=== PATIENT | male | born 1980 | race Caucasian/White ===

== ENCOUNTER 2019-03-19 08:01 | Emergency (ER) | payer OTHER ==
[2019-03-19 08:12] VITALS: BP 149/81
--- NOTE | 2019-03-19 08:19 | UC ---
Upper Extremity HPI - HPI Summary HPI Summary: One week ago hit his lt 4th finger on his grill after he fell. 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 Feels its swollen and painful. nothing makes it better/worse. - History of Current Complaint Chief Complaint: UCUpperExtremity Stated Complaint: LT RING FINGER INJURY Time Seen by Provider: 03/19/19 08:13 Hx Obtained From: Patient Pain Intensity: 3 Pain Scale Used: 0-10 Numeric - Allergies/Home Medications Allergies/Adverse Reactions: Allergies Allergy/AdvReac Type Severity Reaction Status Date / Time iodine Allergy Swelling Verified 03/19/19 08:13 shellfish derived Allergy Swelling Verified 03/19/19 08:13 Of Face,Lips,& Throat Home Medications: Home Medications Potassium Citrate [Urocit-K 5] 540 mg PO 03/19/19 [History] PMH/Surg Hx/FS Hx/Imm Hx - Additional Past Medical History Additional PMH: no chronic conditions. Previously Healthy: Yes - Surgical History Surgical History: Yes Surgery Procedure, Year, and Place: FRACTURED [place]SE- [place]CTOM[place]. KIDNEY STONES - 2014 - Social History Alcohol Use: Daily Alcohol Amount: 1-2 DAILY Substance Use Type: None Smoking Status (MU): Never Smoked Tobacco Review of Systems All Other Systems Reviewed And Are Negative: Yes Constitutional: Positive: Negative Skin: Negative: Rash Musculoskeletal: Positive: Arthralgia - Pain at L ring finger Physical Exam Triage Information Reviewed: Yes Appearance: Well-Appearing Vital Signs: Initial Vital Signs Temp 98.0 F 03/19/19 08:06 Pulse 72 03/19/19 08:06 Resp 18 03/19/19 08:06 BP 149/81 03/19/19 08:06 Pulse Ox 100 03/19/19 08:06 Vital Signs Reviewed: Yes Musculoskeletal: Positive: Strength Intact - L hand/fingers, ROM Intact - L hand /fingers, No Edema, Other: - +abnormal bone at L ring and middle PIP Neurological: Positive: Muscle Tone Normal Diagnostics - Radiology No standard instances Radiology Interpretation Completed By: Radiologist Summary of Radiographic Findings: IMPRESSION: No fracture is noted. 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 Upper Extremity Course/Dx - Course Course Of Treatment: L ring finger pain after hitting it on hard object. of note chronic bony abnormality at PIPs of L ring and middle. xray: IMPRESSION: No fracture is noted. 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 for pain cantake nsaids. - Differential Dx/Diagnosis Differential Diagnosis/HQI/PQRI: Arthritis, Contusion, Fracture (Closed), Strain , Sprain Provider Diagnosis: Finger pain Discharge - Sign-Out/Discharge Documenting (check all that apply): Patient Departure All imaging exams completed and their final reports reviewed: Yes - Discharge Plan Condition: Good Disposition: HOME Patient Education Materials: Finger Sprain (ED) Referrals: Musa Saba MD [Primary Care Provider] - Additional Instructions: Your blood pressure is elevated please review w/ your primary care. - Billing Disposition and Condition Condition: GOOD Disposition: Home
== END 2019-03-19 09:03 | disposition home or self-care (01) ==
LOC: UCEAST 08:01
DX: M79.645 Pain in left finger(s) (principal); Z91.013 Allergy to seafood; Z91.048 Other nonmedicinal substance allergy status
CPT/HCPCS: 73140; 99211; G0463